=== PATIENT | female | born 1990 | race American Indian/Alaskan Native ===

== ENCOUNTER 2018-06-04 13:41 | Emergency (ER) | payer OTHER ==
[2018-06-04 13:59] VITALS: BP 127/71
--- NOTE | 2018-06-04 14:49 | Emergency Department Report ---
- General Chief Complaint: Upper Respiratory Infection Stated Complaint: CHEST PAIN/SORE THROAT Time Seen by Provider: 06/04/18 14:29 Source: patient Mode of arrival: Ambulatory Limitations: No Limitations - History of Present Illness Initial Comments: 28 yo F female presents to the ED with complaints of upper respiratory infection. She reports onset 4 days ago. Patient reported cough productive of yellow mucus nasal congestion. Denies fever. Denies wheezing. Reports chest burning with cough. Patient reports her son is also sick with similar symptoms. MD Complaint: cough, nasal congestion -: days(s) (4) Severity: mild Quality: burning Consistency: constant Improves With: other (thera-flu) Worsens With: nothing Context: sick contacts Associated Symptoms: nasal congestion, cough, chest pain. denies: fever, headache, sore throat, shortness of breath, vomiting Treatments Prior to Arrival: other (thera-flu) - Related Data Previous Rx's Medication Instructions Recorded Last Taken Type Benzonatate [Tessalon Perles] 100 mg PO Q8HR PRN #20 capsule 06/04/18 Unknown Rx Fluticasone [Flonase] 1 spray NS QDAY #1 bottle 06/04/18 Unknown Rx Loratadine/Pseudoephedrine 1 tab PO DAILY PRN #15 tablet 06/04/18 Unknown Rx [Claritin-D 24Hr] Naproxen [Naprosyn] 500 mg PO BID #20 tablet 06/04/18 Unknown Rx Allergies Allergy/AdvReac Type Severity Reaction Status Date / Time amoxicillin Allergy Hives Verified 06/04/18 13:59 ED Review of Systems ROS: Stated complaint: CHEST PAIN/SORE THROAT Other details as noted in HPI Comment: All other systems reviewed and negative Constitutional: denies: chills, fever ENT: congestion Respiratory: cough. denies: shortness of breath, wheezing Cardiovascular: chest pain Gastrointestinal: denies: nausea, vomiting, diarrhea Neurological: denies: headache ED Past Medical Hx - Past Medical History Previous Medical History?: No - Surgical History Past Surgical History?: Yes Additional Surgical History: - Social History Smoking Status: Never Smoker Substance Use Type: Marijuana - Medications Home Medications: Home Medications Medication Instructions Recorded Confirmed Last Taken Type Benzonatate [Tessalon Perles] 100 mg PO Q8HR PRN #20 capsule 06/04/18 Unknown Rx Fluticasone [Flonase] 1 spray NS QDAY #1 bottle 06/04/18 Unknown Rx Loratadine/Pseudoephedrine 1 tab PO DAILY PRN #15 tablet 06/04/18 Unknown Rx [Claritin-D 24Hr] Naproxen [Naprosyn] 500 mg PO BID #20 tablet 06/04/18 Unknown Rx ED Physical Exam - General Limitations: No Limitations General appearance: alert, in no apparent distress - Head Head exam: Present: atraumatic, normocephalic - Eye Eye exam: Present: normal appearance - ENT ENT exam: Present: mucous membranes moist - Neck Neck exam: Present: normal inspection, full ROM. Absent: meningismus - Respiratory Respiratory exam: Present: normal lung sounds bilaterally, chest wall tenderness. Absent: respiratory distress, wheezes - Cardiovascular Cardiovascular Exam: Present: regular rate, normal rhythm - GI/Abdominal GI/Abdominal exam: Present: soft. Absent: tenderness - Extremities Exam Extremities exam: Present: normal inspection - Neurological Exam Neurological exam: Present: alert, oriented X3 - Psychiatric Psychiatric exam: Present: normal affect, normal mood - Skin Skin exam: Present: warm, dry, intact, normal color. Absent: rash ED Course Vital Signs 06/04/18 13:57 Temperature 98.7 F Pulse Rate 97 H Respiratory 18 Rate Blood Pressure 127/71 O2 Sat by Pulse 99 Oximetry ED Medical Decision Making - EKG Data EKG shows normal: sinus rhythm, axis (nml), intervals (nml), QRS complexes (nml) , ST-T waves (T wave inv V2) Rate: normal (87) - EKG Data Interpretation: normal EKG - Medical Decision Making 28-year-old female with upper respiratory infection symptoms 4 days. Patient afebrile, lungs clear. Normal vital signs. We'll give prescriptions for relief of symptoms. Patient given return precautions. Advised outpatient follow-up. - Differential Diagnosis URI, sinusitis, bronchitis Critical care attestation.: If time is entered above; I have spent that time in minutes in the direct care of this critically ill patient, excluding procedure time. ED Disposition Clinical Impression: Upper respiratory infection Disposition: DC-01 TO HOME OR SELFCARE Is pt being admited?: No Condition: Stable Instructions: Upper Respiratory Infection (ED) Prescriptions: Benzonatate [Tessalon Perles] 100 mg PO Q8HR PRN #20 capsule PRN Reason: Cough Fluticasone [Flonase] 1 spray NS QDAY #1 bottle Loratadine/Pseudoephedrine [Claritin-D 24Hr] 1 tab PO DAILY PRN #15 tablet PRN Reason: Congestion Referrals: PRIMARY CARE,MD [Primary Care Provider] - 3-5 Days [facility] [Provider Group] - 3-5 Days Time of Disposition: 14:54
== END 2018-06-04 15:00 | disposition home or self-care (01) ==
LOC: ED 13:41
DX: J06.9 Acute upper respiratory infection, unspecified (principal); Z88.1 Allergy status to other antibiotic agents
CPT/HCPCS: 93005; 93010

== ENCOUNTER 2019-01-20 16:38 | Emergency (ER) | payer OTHER ==
--- NOTE | 2019-01-20 17:12 | Emergency Department Report ---
Chief Complaint: Upper Respiratory Infection Stated Complaint: COLD SX Time Seen by Provider: 01/20/19 17:11 - HPI History of Present Illness: pt presents with cough that began 3 days ago (+) fever, sore throat, SOB no ear ache No PMHx no daily meds non smoker non drinker no drug use MSE screening note: Focused history and physical exam performed. Due to findings the following was ordered: CXR, rapid strep
[2019-01-20] MEDS ORDERED: IBUPROFEN PO ONE (17:14)
--- NOTE | 2019-01-20 18:29 | XRay Report ---
PROCEDURE: XR CHEST ROUTINE 2V HISTORY: cough, fever FINDINGS: Frontal and lateral views the chest were acquired. The heart is mildly large. There is some consolidation at the medial, posterior right lung base, likely right lower lobe pneumonia. No left-s ided infiltrate is seen. IMPRESSION: Suspected pneumonia in the medial aspect of right lower lobe This document is electronically signed by Edwin Enrique MD., January 20 2019 06:27:21 PM ET
[2019-01-20] MEDS ORDERED: ZITHROMAX 500 MG in NACL 0.9% 250ML 250 ML IV ONE (21:11)
[2019-01-20] MEDS ORDERED: NACL 0.9% 1000 ML 1,000 ML IV ONE (21:11)
--- NOTE | 2019-01-20 21:39 | Emergency Department Report ---
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 Patient reports she does suffer from this for about 5 days. Patient reports that it started as a sore throat. He started to get shortness of breath cough and chest pain with deep breath. Patient reports she's had a past medical history of pneumonia in remote past. Patient reports the severity of symptoms about a 10 out of 10. ED Review of Systems ROS: Stated complaint: COLD SX Other details as noted in HPI Comment: All other systems reviewed and negative Constitutional: fever Eyes: denies: eye pain, eye discharge, vision change ENT: congestion Respiratory: cough, shortness of breath Gastrointestinal: denies: abdominal pain, nausea, diarrhea Genitourinary: denies: urgency, dysuria, discharge Musculoskeletal: denies: back pain, joint swelling, arthralgia Skin: denies: rash, lesions Neurological: headache Psychiatric: denies: anxiety, depression Hematological/Lymphatic: denies: easy bleeding, easy bruising ED Past Medical Hx - Past Medical History Previous Medical History?: No - Surgical History Additional Surgical History: - Social History Smoking Status: Never Smoker Substance Use Type: None - Medications Home Medications: Home Medications Medication Instructions Recorded Confirmed Last Taken Type Benzonatate [Tessalon Perles] 100 mg PO Q8HR PRN #20 capsule 06/04/18 Unknown Rx Fluticasone [Flonase] 1 spray NS QDAY #1 bottle 06/04/18 Unknown Rx Loratadine/Pseudoephedrine 1 tab PO DAILY PRN #15 tablet 06/04/18 Unknown Rx [Claritin-D 24Hr] Naproxen [Naprosyn] 500 mg PO BID #20 tablet 06/04/18 Unknown Rx Azithromycin [Zithromax TAB] 500 mg PO QDAY #5 tablet 01/20/19 Unknown Rx Benzonatate [Tessalon Perles] 100 mg PO Q8HR #20 capsule 01/20/19 Unknown Rx Minor Respiratory Exam - Exam General: Vital signs noted. No distress. Alert and acting appropriately. HEENT: Yes Moist Mucous Membranes, No Pharyngeal Erythema, No Pharyngeal E xudates, No Rhinorrhea, No Conjuctival Injection, No Frontal Tenderness, No Maxillary Tenderness Ear: Neither TM Bulge, Neither TM Erythema, Neither EAC Pain, Neither EAC Disc harge Neck: Yes Supple, No Adenopathy Lungs: Yes Ronchi (rt ), Yes Cough, No Labored Respirations, No Retractions, No Use of Accessory Muscles, No Other Abnormal Lung Sounds Heart: Yes Regular (tachycardic), No Murmur Abdomen: Yes Normal Bowel Sounds, No Tenderness, No Peritoneal Signs Skin: No Rash, No Edema Neurologic: Alert and oriented, no deficits. Musculoskeletal: Unremarkable. ED Course Vital Signs 01/20/19 01/20/19 17:11 17:24 Temperature 102.7 F H Pulse Rate 113 H Respiratory 18 18 Rate Blood Pressure 116/61 O2 Sat by Pulse 97 Oximetry ED Medical Decision Making - Lab Data Result diagrams: 01/20/19 21:30 - Radiology Data Radiology results: report reviewed Patient: ARTHUR VIERA MR#: [id number] : 1990 Acct:[id number] Age/Sex: 28 / F ADM Date: 01/20/19 Loc: ED Attending Dr: Ordering Physician: STAN CH Date of Service: 01/20/19 Procedure(s): XR chest routine 2V Accession Number(s): [id number] cc: STAN CH Fluoro Time In Minutes: PROCEDURE: XR CHEST ROUTINE 2V HISTORY: cough, fever FINDINGS: Frontal and lateral views the chest were acquired. The heart is mildly large. There is some consolidation at the medial, posterior right lung base, likely right lower lobe pneumonia. No left-sided infiltrate is seen. IMPRESSION: Suspected pneumonia in the medial aspect of right lower lobe This document is electronically signed by Edwin Enrique MD., January 20 2019 06:27:21 PM ET Transcribed By: HYACINTH Dictated By: EDWIN ENRIQUE MD Electronically Authenticated By: EDWIN ENRIQUE MD Signed Date/Time: 01/20/191828 DD/ 57 - Medical Decision Making She has been evaluated by this provider and a CBC. Chest x-ray showed the patient had a little low lower lobe pneumonia. Patient came in tachycardic as well as fever. IV of normal saline and Rocephin 1 g IV given. Patiently instructed to follow up with primary care provider she'll be discharged home on oral antibiotics as well as antipyretic medications. Critical care attestation.: If time is entered above; I have spent that time in minutes in the direct care of this critically ill patient, excluding procedure time. ED Disposition Clinical Impression: Right lower lobe pneumonia Qualifiers: Pneumonia type: due to unspecified organism Qualified Code(s): J18.1 - Lobar pneumonia, unspecified organism Disposition: - TO HOME OR SELFCARE Is pt being admited?: No Does the pt Need Aspirin: No Condition: Stable Instructions: Bacterial Pneumonia (ED) Additional Instructions: Completes her antibiotics as prescribed. Increase her water intake take Tylenol or Motrin for fever and pain control. Take Tessalon Perles for cough. Follow up with the primary care provider I have listed with clinic below. Convenience. Prescriptions: Benzonatate [Tessalon Perles] 100 mg PO Q8HR #20 capsule Azithromycin [Zithromax TAB] 500 mg PO QDAY #5 tablet Referrals: GHAZALA JOHNSON MD [Primary Care Provider] - 3-5 Days [facility] [place] [Outside] - 3-[address] [facility] [Outside] - 3-5 Days Forms: Work/School Release Form(ED)
[2019-01-20 21:56] LABS: Basophils # (Auto) 0.1 K/mm3 (0.0-0.1); Eosinophils # (Auto) 0.2 K/mm3 (0.0-0.4); Eosinophils % (Auto) 2.5 % (0.0-4.3); Hematocrit 37.6 % (30.3-42.9); Hemoglobin 12.2 gm/dl (10.1-14.3); Lymphocytes # (Auto) 2.2 K/mm3 (1.2-5.4); Lymphocytes % (Auto) 35.3 % (13.4-35.0); Mean Corpuscular HGB Conc 32 % (30-34); Mean Corpuscular Volume 77 fl (79-97); Monocytes # (Auto) 0.8 K/mm3 (0.0-0.8); Monocytes % (Auto) 11.9 % (0.0-7.3); Platelet Count 250 K/mm3 (140-440); Red Blood Count 4.87 M/mm3 (3.65-5.03); Red Cell Distribution Width 15.4 % (13.2-15.2)
[2019-01-20 22:21] LABS: Alanine Aminotransferase 14 units/L (7-56); Albumin 3.9 g/dL (3.9-5); BUN/Creatinine Ratio 13; Blood Urea Nitrogen 8 mg/dL (7-17); Calcium 8.4 mg/dL (8.4-10.2); Hemolysis Index 8
[2019-01-20 23:58] VITALS: BP 132/78
== END 2019-01-20 23:58 | disposition home or self-care (01) ==
LOC: ED 16:38
DX: J18.1 Lobar pneumonia, unspecified organism (principal); Z88.1 Allergy status to other antibiotic agents
CPT/HCPCS: 36415; 71046; 80053; 85025; 87116; 87430; 96365; 96366; 99284; J0456; J7030; J7050